=== PATIENT | male | born 1940 | race Caucasian/White ===

== ENCOUNTER 2017-03-27 23:39 | Emergency (ER) | payer MEDICARE ==
[2017-03-28] MEDS ORDERED: Cyclobenzaprine 10 MG TAB ONE (00:39)
[2017-03-28] MEDS ORDERED: predniSONE 20 MG TAB ONE (00:39)
--- NOTE | 2017-03-28 07:34 | RAD ---
3 VIEW LUMBAR SPINE RADIOGRAPH SERIES: Date: 03/28/17 CLINICAL HISTORY: Pain, emergency exam. FINDINGS: Moderate multilevel degenerative change of the lumbar spine present. There is a trace degree of retr olisthesis at L1-2. Multilevel prominent disc space narrowing present with multilevel gas vacuum phe nomenon. There is prominent facet osteoarthritis throughout the lumbar spine. Incidental note of ath erosclerosis. IMPRESSION: Multilevel prominent degenerative change of the lumbar spine without acute fracture evident. POS: C
--- NOTE | 2017-03-28 07:35 | RAD ---
RIGHT HIP 2 VIEWS: Date: 03/28/17 INDICATION: Pain. Emergency exam. FINDINGS: There is no fracture or dislocation of the right hip. Scattered degenerative change present. There a re metallic clips in the right inguinal region. IMPRESSION: No acute fracture of the right hip. POS: C
--- NOTE | 2017-05-12 14:34 | EKG ---
Test Reason : R. HIP PAIN LIGHTHEA Blood Pressure : / mmHG Vent. Rate : 071 BPM Atrial Rate : 071 BPM P-R Int : 000 ms QRS Dur : 162 ms QT Int : 488 ms P-R-T Axes : 000 065 053 degrees QTc Int : 530 ms AV sequential or dual chamber electronic pacemaker No STEMI Confirmed by AIXA PRICE, INGE ([id number]), film and video editor HORACIO THORNTON ([id number]) on 05/12/2017 2:33:59 PM Referred By: Confirmed By:INGE KRUSE MD
== END 2017-03-28 03:15 | disposition home or self-care (01) ==
LOC: ERS 23:39
DX: M51.36 Other intervertebral disc degeneration, lumbar region (principal); I25.10 Atherosclerotic heart disease of native coronary artery without angina pectoris; I48.91 Unspecified atrial fibrillation; E78.5 Hyperlipidemia, unspecified; I10 Essential (primary) hypertension; F41.9 Anxiety disorder, unspecified; Z79.899 Other long term (current) drug therapy; Z79.82 Long term (current) use of aspirin
CPT/HCPCS: 72100; 93005; 96374; 96376; J2270; J7506

== ENCOUNTER 2018-02-03 06:47 | Outpatient (CLI) | payer MEDICARE | END 2018-02-03 06:48 | disposition home or self-care (01) | LOC: BICCT 06:47 | PROVIDERS: ATTEND Orthopaedic Surgery | DX: M24.021 Loose body in right elbow (principal); M19.021 Primary osteoarthritis, right elbow; M25.721 Osteophyte, right elbow; M25.821 Other specified joint disorders, right elbow ==

== ENCOUNTER 2018-03-02 09:42 | Outpatient (CLI) | payer MEDICARE ==
[2018-03-02 11:32] LABS: Hemoglobin 12.8 g/dL (14.0-18.0); Mean Corpuscular HGB CONC 33.2 g/dL (32.0-36.0); Mean Corpuscular Hemoglobin 30.3 pg (27.0-31.0); Mean Corpuscular Volume 91.3 fL (78.0-98.0); Mean Platelet Volume 7.3 fL (7.4-10.4); Platelet Count 305 thou/uL (130-400); RBC Distribution Width 12.6 % (11.5-14.5); Red Blood Cell (RBC) Count 4.22 mill/uL (4.70-6.10); White Blood Cell (WBC) Count 9.9 thou/uL (4.8-10.8)
[2018-03-02 11:49] LABS: Anion Gap 16 mmol/L (10-20); BUN (Urea Nitrogen) 19 mg/dL (8.4-25.7); Calc. Creatinine Clearance 0 mL/min (70-130); Calcium 9.5 mg/dL (7.8-10.44); Carbon Dioxide 26 mmol/L (23-31); Chloride 98 mmol/L (98-107); Estimated GFR-MDRD 86; Glucose 115 mg/dL (83-110); Potassium 4.9 mmol/L (3.5-5.1); Sodium 135 mmol/L (136-145)
== END 2018-03-02 09:43 | disposition home or self-care (01) ==
LOC: LABBT 09:42
PROVIDERS: ATTEND Orthopaedic Surgery
DX: Z01.812 Encounter for preprocedural laboratory examination (principal); M24.021 Loose body in right elbow
CPT/HCPCS: 80048; 85027

== ENCOUNTER → 2018-03-05 | Day surgery (SDC) | payer MEDICARE ==
[2018-03-02 10:07] VITALS: BMI 36.3
[~2018-03-05] MED LIST: Bupivacaine/Epinephrine 0.25% 30 ML VIAL ONE; CEFAZOLIN/Water 2 GM/20 ML SYRINGE ONE; Fentanyl 100 MCG/2 ML VIAL ONE; Glycopyrrolate 0.2 MG/ML 5 ML SYRINGE ONE; HYDROcodone/Acetaminophen 5/325 mg Tablet ONE; Lidocaine 1% PF 5 ML VIAL ONE; PHENYLEPHRINE-NS 100 MCG/ML 10 ML SYRINGE ONE; PROPOFOL 200 MG/20 ML VIAL ONE; Vecuronium 10 MG VIAL ONE
[2018-03-05 06:59] LABS: Anion Gap 11 mmol/L (10-20); BUN (Urea Nitrogen) 16 mg/dL (8.4-25.7); Calc. Creatinine Clearance 106 mL/min (70-130); Carbon Dioxide 28 mmol/L (23-31); Chloride 99 mmol/L (98-107); Estimated GFR-MDRD 85; Glucose 145 mg/dL (83-110); Potassium 4.3 mmol/L (3.5-5.1); Sodium 134 mmol/L (136-145)
--- NOTE | 2018-03-05 10:35 | OP ---
DATE OF PROCEDURE: 03/05/2018 PREOPERATIVE DIAGNOSES: Right elbow loose body with early degenerative changes. POSTOPERATIVE DIAGNOSES: Right elbow osteoarthritis with degenerative changes, loose body. PROCEDURE PERFORMED: Limited debridement, elbow arthroscopy with loose body removal. STAFF: Gal Manuel M.D. EYE SPECIALIST: None. ANESTHESIA: Gamino. The patient received a general intubation with 20 mL of Marcaine, 0.25% with ep inephrine intraarticularly. ESTIMATED BLOOD LOSS: 10 mL. TOURNIQUET TIME: 38 minutes at 250 mmHg. ANTIBIOTICS: Ancef 2 grams. COMPLICATIONS: None. HISTORY OF PRESENT ILLNESS: Mr. Joe is a 77-year-old male who presented to me with elbow pain. He had good relief from an elbow injection. The patient had locking and catching symptoms. CT scan showed anterior osteophyte and some loose bodies noted with intraarticularly. I discussed with patie nt the risks and benefits of an arthroscopic debridement with removal of loose body and indicated pro cedures. The patient understood the risks and benefits of the procedure to include pain, scar, bleed ing, infection, damage to vital structures, decreased range of motion or strength, failure of removal of loose bodies, continued pain despite surgical intervention, loss of life or limb. The patient un derstood the risks and benefits and elected to proceed. PROCEDURE NOTE: Timeout was performed designating the patient's right upper extremity as the operati ve site based on sight, consents, and markings. After timeout, the patient's right extremity was pre pped and draped in sterile fashion. He was placed in lateral decubitus position with bone prominence s well padded. I placed a tourniquet, it was brought up and left up for a total of 38 minutes. I we nt down, placed my proximal, anteromedial and my proximal anterolateral portal. I injected the Mary ine in the joint to distend it. I placed my scope portal, visualized intraarticularly. I was lookin g at the radiocapitellar joint, placed my lateral portal. I then debrided. here was some synovitic tissue and a small loose body noted right at the patient's tip of the coronoid which I debrided and r emoved. I debrided off some of the synovium and did a thorough check from medial then switched to la terally and did the same thing, debrided off any synovitis, anything that could be blocking it. I di d not feel or see any other loose bodies besides the one mass that I had to break into several pieces to remove anteriorly. I then moved posteriorly. I placed my midline incision and 1 direct posterio r incision and my posterior lateral incision for my scope portals. I placed my scope and debrided ou t the coronoid olecranon fossa. I completely opened fossa, did not find any large loose bodies that could have been removed, some of debridement. I checked from both portals to ensure that I did not m iss anything and there was no other ____. I put the elbow through range of motion. I then completed my scope, closed with my 3-0 nylon. The patient will begin elbow range of motion, be placed in a sling for about a week. He will be give n hydrocodone for a couple days and return to his previous hydrocodone dose. The patient will follow up with me in 10-14 days for the loose body removal.
== END ==
LOC: SDC 05:41
PROVIDERS: ATTEND Orthopaedic Surgery
PROC: 0RBL4ZZ Excision of Right Elbow Joint, Percutaneous Endoscopic Approach (ICD-10-PCS; principal; 2018-03-05)
PROC: 0RCL4ZZ Extirpation of Matter from Right Elbow Joint, Percutaneous Endoscopic Approach (ICD-10-PCS; 2018-03-05)
DX: M24.021 Loose body in right elbow (principal); M19.021 Primary osteoarthritis, right elbow; E78.5 Hyperlipidemia, unspecified; E11.9 Type 2 diabetes mellitus without complications; I25.10 Atherosclerotic heart disease of native coronary artery without angina pectoris; F32.9 Major depressive disorder, single episode, unspecified; F41.9 Anxiety disorder, unspecified; I48.0 Paroxysmal atrial fibrillation; I11.0 Hypertensive heart disease with heart failure; I50.22 Chronic systolic (congestive) heart failure; E66.9 Obesity, unspecified; Z68.36 Body mass index [BMI] 36.0-36.9, adult; Z79.82 Long term (current) use of aspirin; Z79.899 Other long term (current) drug therapy; Z88.8 Allergy status to other drugs, medicaments and biological substances; Z91.048 Other nonmedicinal substance allergy status; Z66 Do not resuscitate; Z95.1 Presence of aortocoronary bypass graft
CPT/HCPCS: 36415; 80048; 96374; J2001; J2704; J3010

== ENCOUNTER 2018-08-07 07:54 | Outpatient (CLI) | payer MEDICARE ==
--- NOTE | 2018-08-07 15:07 | NM ---
WHOLE BODY BONE SCAN: HISTORY: Fall with mid back pain. Compression fracture. COMPARISON: 08/21/2016 TECHNIQUE: A whole body bone scan is performed after administration of 31.8 millicuries of technetium 99m MDP. FINDINGS: An area of photopenia is seen overlying the left chest wall, likely from a pacemaker. Photopenia is seen in the right knee from prior right knee arthroplasty. No significant area of increased uptake o f the radiopharmaceutical is seen within the spine to suggest an acute compression fracture. Uptake surrounding the shoulders is likely secondary to degenerative changes. Soft tissue activity is unremarkable. IMPRESSION: No evidence of acute spinal compression fracture. POS: [facility]
== END 2018-08-07 07:55 | disposition home or self-care (01) ==
LOC: NM 07:54
PROVIDERS: ATTEND Anesthesiology Pain Medicine
DX: S22.009A Unspecified fracture of unspecified thoracic vertebra, initial encounter for closed fracture (principal)
CPT/HCPCS: 78306; A9503

== ENCOUNTER 2018-10-05 09:35 | Day surgery (SDC) | payer MEDICARE ==
[2018-10-05 10:56] LABS: #Eosinphils 0.4 thou/uL (0.0-0.7); #Lymphocytes 1.3 thou/uL (1.20-3.40); #Monocytes 0.6 thou/uL (0.11-0.59); #Neutrophils 5.3 thou/uL (1.40-6.50); %Basophils 0.2 % (0.0-1.0); %Lymphocytes 16.8 % (21.0-51.0); %Monocytes 8.4 % (0.0-10.0); %Neutrophils 69.5 % (42.0-75.0); Hemoglobin 11.1 g/dL (14.0-18.0); Mean Corpuscular HGB CONC 32.8 g/dL (32.0-36.0); Mean Corpuscular Hemoglobin 30.1 pg (27.0-31.0); Mean Corpuscular Volume 91.7 fL (78.0-98.0); Mean Platelet Volume 6.7 fL (7.4-10.4); Platelet Count 246 thou/uL (130-400); RBC Distribution Width 13.5 % (11.5-14.5); Red Blood Cell (RBC) Count 3.69 mill/uL (4.70-6.10); White Blood Cell (WBC) Count 7.6 thou/uL (4.8-10.8)
[2018-10-05 11:03] LABS: INR-International Normal Ratio 1.1; Prothrombin Time 13.8 SEC (12.0-14.7)
[2018-10-05 11:04] LABS: PTT 29.9 SEC (22.9-36.1)
[2018-10-05 11:44] LABS: Anion Gap 12 mmol/L (10-20); BUN (Urea Nitrogen) 15 mg/dL (8.4-25.7); Calc. Creatinine Clearance 109 mL/min (70-130); Calcium 9.5 mg/dL (7.8-10.44); Carbon Dioxide 29 mmol/L (23-31); Chloride 102 mmol/L (98-107); Estimated GFR-MDRD Greater than 90; Glucose 126 mg/dL (83-110); Sodium 139 mmol/L (136-145)
[2018-10-05] MEDS ORDERED: PROPOFOL 200 MG/20 ML VIAL ONE (13:13)
--- NOTE | 2018-10-05 19:52 | OP ---
DATE OF PROCEDURE: 10/05/2018 PROCEDURE PERFORMED: Electrical cardioversion. REASON FOR PROCEDURE: Mr. Joe is a 77-year-old male with history of prior ablations, atrial fibrillation, and surgical left atrial appendage closure. He is here for a planned cardioversion through his device. DESCRIPTION OF PROCEDURE: The patient received propofol by Anesthesia specialist. After adequate level of sedation achieved, a 35-joule internal synchronized shock promptly converted him back to sinus rhythm. CONCLUSION: Successful cardioversion. The interrogation reveals adequate function. Routine followup. Job ID: [id number]
--- NOTE | 2018-10-07 11:50 | EKG ---
Test Reason : PREOP Blood Pressure : / mmHG Vent. Rate : 070 BPM Atrial Rate : 070 BPM P-R Int : 000 ms QRS Dur : 170 ms QT Int : 486 ms P-R-T Axes : 000 046 046 degrees QTc Int : 524 ms Electronic ventricular pacemaker Biventricular paced. When compared with ECG of 27-MAR-2017 23:56, No significant change was found Confirmed by DR. John GRAYSON ([id number]) on 10/07/2018 11:50:37 AM Referred By: [facility] Confirmed By:DR. John GRAYSON
== END 2018-10-05 14:32 | disposition home or self-care (01) ==
LOC: CCL 09:35
PROVIDERS: ATTEND Internal Medicine Cardiovascular Disease
PROC: 5A2204Z Restoration of Cardiac Rhythm, Single (ICD-10-PCS; principal; 2018-10-05)
DX: I48.1 Persistent atrial fibrillation (principal); I11.0 Hypertensive heart disease with heart failure; I50.22 Chronic systolic (congestive) heart failure; I25.5 Ischemic cardiomyopathy; K21.9 Gastro-esophageal reflux disease without esophagitis; Z79.82 Long term (current) use of aspirin; Z79.899 Other long term (current) drug therapy; Z88.8 Allergy status to other drugs, medicaments and biological substances; Z91.048 Other nonmedicinal substance allergy status; Z95.1 Presence of aortocoronary bypass graft; Z95.810 Presence of automatic (implantable) cardiac defibrillator
CPT/HCPCS: 80048; 85025; 85610; 85730; 92960; 93005; 93010; J2704

== ENCOUNTER 2018-12-07 09:21 | Inpatient (IN) | payer MEDICARE ==
[2018-12-07 12:18] VITALS: BMI 34.8
[2018-12-07 12:40] LABS: Anion Gap 11 mmol/L (10-20); BUN (Urea Nitrogen) 11 mg/dL (8.4-25.7); Calc. Creatinine Clearance 122 mL/min (70-130); Calcium 10.1 mg/dL (7.8-10.44); Carbon Dioxide 29 mmol/L (23-31); Chloride 102 mmol/L (98-107); Estimated GFR-MDRD Greater than 90; Glucose 119 mg/dL (83-110); Magnesium 2.1 mg/dL (1.6-2.6); Potassium 4.2 mmol/L (3.5-5.1); Sodium 138 mmol/L (136-145)
[2018-12-07] MEDS: HYDROcodone/Acetaminophen 7.5/325 mg Tablet PO PRN ×2 (15:04→20:20)
[2018-12-07] MEDS ORDERED: Sotalol HCl 80 MG TAB PO SCH (21:00)
[2018-12-07] MEDS: Gabapentin 300 MG CAP PO SCH (21:32)
[2018-12-08] MEDS: HYDROcodone/Acetaminophen 7.5/325 mg Tablet PO PRN ×6 (00:14→20:24)
[2018-12-08] MEDS: Sotalol HCl 80 MG TAB PO SCH ×2 (05:19→18:34)
[2018-12-08] MEDS: Gabapentin 300 MG CAP PO SCH ×3 (05:23→20:25)
[2018-12-08] MEDS ORDERED: Sotalol HCl 80 MG TAB PO SCH (06:00)
--- NOTE | 2018-12-08 08:14 | HP ---
HISTORY OF PRESENT ILLNESS: I am admitting Mr. Joe at our [facility]. His problems are: 1. Chronic systolic congestive heart failure with ischemic cardiomyopathy. a. History of coronary artery disease with bypass grafting surgery in the past: b. 2D echo from 03/02/2018 showing LVEF of 20% to 25%, severe aortic valve dysfunction, moderate tricuspid regurgitation, mild mitral regurgitation, mild pulmonic insufficiency. 2. Persistent atrial fibrillation with prior repeat ablation including left atrial appendage isolation. 3. History of GI bleed and falls, contraindicating anticoagulation. 4. History of left atrial appendage occlusion surgically with bypass grafting per report. 5. Status post biventricular ICD implantation with Medtronic device in 02/2015. 6. History of sinus node dysfunction. 7. History of hypertension. ALLERGIES: TAPE AND COUMADIN. MEDICATIONS: At home, included; 1. Aspirin. 2. Lipitor 40 mg p.o. nightly. 3. Fluoxetine. 4. Isosorbide mononitrate. 5. Losartan 50 mg daily. 6. Spironolactone. 7. Lactobacillus. 8. Multivitamin. 9. Omeprazole. 10. Calcium. 11. D3/magnesium supplements daily. 12. Hydrocodone. 13. [place] daily. 14. Torsemide. 15. Carvedilol. 16. Gabapentin. SUBJECTIVE: Mr. Joe is doing fair. He has episodes of fluid overload on his device. He required increased dose of Lasix . He denies PND or orthopnea. No dizziness or loss of consciousness. No stroke-like symptoms. No fever, chills, cough. He is class 2-3 functional status. PAST HISTORY: As above. SOCIAL HISTORY: The patient denies smoking, EtOH, or drug abuse. He is . is in the room at the time of exam. FAMILY HISTORY: Noncontributory. OBJECTIVE DATA: VITAL SIGNS: Heart rate is 70, respiratory rate is 18, and temperature 99.2. GENERAL: Alert and oriented man, in no apparent distress. NECK: Supple. Jugular veins not distended. CHEST: Coarse with crackles. HEART: Sounds are regular to rate and rhythm. Left precordial ICD insertion site is well healed. ABDOMEN: Benign. Bowel sounds positive. EXTREMITIES: Lower extremities without edema, clubbing, or cyanosis. Pulses are adequate. NEUROLOGIC: The patient is nonfocal. MUSCULOSKELETAL: No joint pain or deformity. SKIN: Without rash. DATABASE: EKG reveals atrial fibrillation with ventricular pacing. The QT at baseline is 480 milliseconds, QTc calculated to be 530 milliseconds, QRS duration though is 170 milliseconds. LABORATORY DATA: Sodium 138, potassium 4.2, BUN is 11, and creatinine 0.71. ASSESSMENT AND PLAN: Mr. Joe is a pleasant 78-year-old man with prior history of ischemic cardiomyopathy, severe reduced LVEF, atrial fibrillation, noted more recently. He is here for sotalol loading. He is taking prescribed medications, starting tonight. We will plan to observe for next 4 loading dosages. Currently, he is stable. Currently, he is in atrial fibrillation. He has a history of left atrial appendage ligation by surgical procedure, currently not on anticoagulation hence. He had prior cardioversion with subsequent recurrence of atrial fibrillation and we are planning to load him with sotalol, possible cardioversion afterwards. Job ID: [id number]
--- NOTE | 2018-12-08 12:06 | PRG ---
DATE OF SERVICE: 12/08/2018 SUBJECTIVE: Mr. Joe seems to be doing well one day after admit. He initiated his sotalol therapy yesterday. So far continued atrial fibrillation, ventricular pacing. OBJECTIVE: VITAL SIGNS: Blood pressure is 133/71, heart rate 73, respiratory rate is 18, and temperature 98.8 degrees Fahrenheit. GENERAL: Alert and oriented obese man, in no apparent distress. NECK: Supple. Jugular veins not distended. CHEST: Coarse without crackles. HEART: Sounds are regular to rate and rhythm. No murmur or gallop. CARDIO: ICD insertion site is well healed. ABDOMEN: Benign. Bowel sounds are positive. EXTREMITIES: Lower extremities without edema, clubbing, or cyanosis. DIAGNOSTIC STUDIES: EKG is reviewed, revealing still prolonged QT with markedly prolonged QRS. No change from yesterday at about 128 milliseconds QTc. No proarrhythmia is seen. ASSESSMENT AND PLAN: Mr. Joe is a pleasant 78-year-old man with prior history of current state of congestive heart failure with poor left ventricular ejection fraction in the past. He had prior atrial fibrillation ablation, appendage isolation, but eventual surgical occlusion of the left atrium. He is now here for sotalol loading and possible cardioversion. For now, he seems to be doing well. The QT although prolonged possibly contributed by the markedly prolonged QRS as well. At this point, no major changes noted. Plan is to continue sotalol loading. Consider cardioversion tomorrow. Job ID: [id number]
[2018-12-09] MEDS: Gabapentin 300 MG CAP PO SCH ×3 (06:27→21:06)
[2018-12-09] MEDS: Sotalol HCl 80 MG TAB PO SCH ×2 (06:28→17:43)
[2018-12-09] MEDS ORDERED: PROPOFOL 40 ML ONE (13:34)
--- NOTE | 2018-12-09 17:30 | PRG ---
DATE OF SERVICE: 12/09/2018 This dictation is for Carmine Sanchez MD CHIEF COMPLAINT: Atrial fibrillation. SUBJECTIVE: The patient reports to be feeling well. He denies any chest discomfort, palpitations, presyncope or syncope. OBJECTIVE: GENERAL: The patient is well appearing, in no apparent distress. VITAL SIGNS: Blood pressure 134/64, pulse 72, respirations 16. NECK: Supple without jugular venous distention. RESPIRATORY: Breath sounds diminished throughout the lung disla but no adventitious sounds noted. Respiratory effort unlabored with good equal bilateral excursion. CARDIOVASCULAR: Regular rate and rhythm. ABDOMEN: Soft and nontender. Hepatojugular reflux negative. EXTREMITIES: No lower extremity edema noted. DIAGNOSTIC DATA: EKG today demonstrated underlying atrial fibrillation with biventricular pacing/capture and QT interval 496 milliseconds. IMPRESSION: 1. Recurrent, persistent atrial fibrillation in spite of repeat left atrial ablative procedures including isolation of left atrial appendage. He has been started on sotalol 120 mg p.o. b.i.d. and is tolerating medications well. Checking the QT interval manually, it has prolonged minimally from baseline. The patient's renal function remains stable. 2. HEALTH INFORMATION ASSISTANT-ICD in situ (Medtronic). 3. Dilated cardiomyopathy with severely decreased left ventricular ejection fraction of 20% to 25%. The left ventricular end diastolic dimension is 7.6 cm. 4. Moderate left atrial enlargement. 5. Moderate mitral regurgitation. 6. Atherosclerotic cardiovascular disease, status post previous coronary artery disease. 7. Chronic congestive heart failure, [place] Heart [employer] Class III, currently fairly well compensated. 8. Status post previous surgical excision of the left atrial appendage. PLAN: The patient is recommended for electrical cardioversion today. He remains n.p.o. The patient understands the goals and risks of electrical cardioversion including , CT, CVA, arrhythmia recurrence, and possible need for repeat or serial procedures. Job ID: [id number] [facility]
--- NOTE | 2018-12-09 19:06 | ECHO ---
DATE OF SERVICE: 12/09/18 REFERRING PHYSICIAN: Dr. Covington REASON FOR PROCEDURE: The patient is a 78-year-old male with prior history of chronic CHF and cardiomyopathy with reduced L VEF. Has been in atrial fibrillation and has had history of surgical Atriclip occlusion device. Is he re for ASHUTOSH to evaluate for patency or occlusion of the left atrial appendage and rule out intracardia c clots prior to planned cardioversion. PROCEDURE: The patient received Propofol by Anesthesia specialist. After adequate level of sedation achieved, a standard transesophageal echocardiogram probe was passed into the esophagus without diff iculty. Patient tolerated the procedure well, no complications noted. RESULTS: Left atrium is enlarged to a moderate to severe degree. The left atrial appendage is visualized with truncated small, less than 1 cm residual trunk noted with no distal part of the appendage is visualiz ed. No apparent communication between the left atrium and the mid to distal part of the left atrial a ppendage is seen. Four out of four pulmonary veins were seen. Interatrial septum is mobile and with r ight leaning suggestive of left atrial pressures. Left ventricular systolic function is severely redu corrina. Four chamber dilation noted. The aortic valve has three leaflets without regurgitation or sten osis. Right sided chambers with pacemaker wires noted in them. Pericardial space without effusion. The visualized portion of ascending aorta is without aneurysm or dissection. CONCLUSION: 1. No intracardiac clots. 2. Reduced LV systolic function. 3. Previously performed surgical left atrial appendage clipping reveals adequate closure of left atr ial appendage with a small, less than 1 cm stump still visualized. 4. Mild mitral regurgitation noted only. 5. No other valvular heart disease. 6. ICD/pacemaker wires in the right sided chambers. PLAN: Proceed with cardioversion.
--- NOTE | 2018-12-09 20:57 | OP ---
DATE OF PROCEDURE: 12/09/2018 PROCEDURE PERFORMED: Internal cardioversion. REASON FOR PROCEDURE: Mr. Joe is a 78-year-old man with a history of CHF and cardiomyopathy with reduced LVEF, who has history of left atrial appendage occlusion by likely AtriClip surgical device, underwent ASHUTOSH, demonstrating no clots, is here for a planned cardioversion. DESCRIPTION OF PROCEDURE: The patient's ICD was interrogated pre and post procedure, after adequate level of sedation achieved, pace termination of the perceived coarse atrial fib/flutter was attempted, but was unsuccessful. Following that, a synchronized 35-joule shock promptly converted back the patient to sinus rhythm. ICD was interrogated pre and post procedure, revealing adequate function and battery voltage 2.5 years of estimated longevity. The lead parameters are adequate with impedance of 589, 304, and 380 ohms respectively. P and R waves, 1 mV and 10.3 mV. Capture threshold 0.5 V, 1 V, and 0.5 V respectively. CONCLUSION: 1. Adequately functioning Bi-V ICD. 2. Successful internal cardioversion with 35-joule shock performed. 3. ATP therapies, and atrial overdrive pacing is programmed on. PLAN: Continue routine monitoring for recurrent arrhythmias. For now, hold off anticoagulation, hence left atrial appendage surgical clipping performed in the past. Job ID: [id number]
[2018-12-10] MEDS: Gabapentin 300 MG CAP PO SCH (05:44)
[2018-12-10] MEDS: Sotalol HCl 80 MG TAB PO SCH (05:44)
[2018-12-10 07:26] VITALS: BP 164/79; TEMP 100.2
--- NOTE | 2018-12-10 10:15 | DIS ---
DATE OF ADMISSION: 12/07/2018 DATE OF DISCHARGE: 12/10/2018 ADMITTING DIAGNOSES: 1. Chronic systolic congestive heart failure with nonischemic cardiomyopathy. 2. Persistent atrial fibrillation with prior ablation and left atrial appendage isolation. 3. Prior history of surgical left atrial appendage closure. 4. Biventricular implantable cardioverter-defibrillator in place. 5. History of sinus node dysfunction. DISCHARGE DIAGNOSES: 1. Status post sotalol loading without significant change in the QTc about 530 milliseconds. 2. Status post cardioversion. 3. Status post transesophageal echocardiogram on 12/09/2018, demonstrating adequate left atrial appendage occlusion with a surgical clip with minimal less than 1 cm stump. 4. The patient off anticoagulation. HOSPITAL COURSE: Mr. Joe was admitted for elective sotalol loading. He tolerated the medication well. No issues noted. His QTc remained pretty much unchanged from a 120 mg b.i.d. regimen. He is feeling better after his cardioversion performed yesterday. He is maintaining sinus rhythm on telemetry. His exam did not change. EKG reviewed this morning and revealed QTc about 530 milliseconds, unchanged from baseline. PLAN: At this point to resume all medications except carvedilol, will be reduced to 6.25 mg twice a day and sotalol continue 120 twice a day. The patient will be kept on aspirin only for anticoagulation. He is to resume losartan, Lipitor, and spironolactone as well. Torsemide also reinstituted. Routine ICD checks and followup visit in 6 weeks are requested. Job ID: [id number]
--- NOTE | 2018-12-10 17:52 | EKG ---
Test Reason : Blood Pressure : / mmHG Vent. Rate : 071 BPM Atrial Rate : 078 BPM P-R Int : 000 ms QRS Dur : 172 ms QT Int : 488 ms P-R-T Axes : 000 176 029 degrees QTc Int : 530 ms Ventricular-paced rhythm Biventricular pacemaker detected Abnormal ECG When compared with ECG of 05-OCT-2018 11:01, No significant change was found Confirmed by DR. John GRAYSON ([id number]) on 12/10/2018 5:52:02 PM Referred By: [facility] Confirmed By:DR. John GRAYSON
--- NOTE | 2018-12-10 17:54 | EKG ---
Test Reason : Blood Pressure : / mmHG Vent. Rate : 071 BPM Atrial Rate : 034 BPM P-R Int : 000 ms QRS Dur : 174 ms QT Int : 486 ms P-R-T Axes : 000 047 055 degrees QTc Int : 528 ms Electronic ventricular pacemaker When compared with ECG of 07-DEC-2018 14:15, (Unconfirmed) No significant change was found Confirmed by DR. John GRAYSON ([id number]) on 12/10/2018 5:54:03 PM Referred By: [facility] Confirmed By:DR. John GRAYSON
--- NOTE | 2018-12-11 08:08 | EKG ---
Test Reason : Blood Pressure : / mmHG Vent. Rate : 072 BPM Atrial Rate : 202 BPM P-R Int : 000 ms QRS Dur : 174 ms QT Int : 496 ms P-R-T Axes : 000 050 025 degrees QTc Int : 543 ms Electronic ventricular pacemaker When compared with ECG of 08-DEC-2018 07:24, (Unconfirmed) No significant change was found Confirmed by DR. John GRAYSON ([id number]) on 12/11/2018 8:08:26 AM Referred By: [facility] Confirmed By:DR. John GRAYSON
== END 2018-12-10 11:00 | disposition home or self-care (01) | DRG 309 ==
LOC: 2NO 10:39
PROVIDERS: ADMIT Internal Medicine Cardiovascular Disease; ATTEND Internal Medicine Cardiovascular Disease
PROC: 5A2204Z Restoration of Cardiac Rhythm, Single (ICD-10-PCS; principal; 2018-12-09)
PROC: B24BZZ4 Ultrasonography of Heart with Aorta, Transesophageal (ICD-10-PCS; 2018-12-09)
DX: I48.1 Persistent atrial fibrillation (principal); I50.22 Chronic systolic (congestive) heart failure; I25.5 Ischemic cardiomyopathy; I11.0 Hypertensive heart disease with heart failure; I25.10 Atherosclerotic heart disease of native coronary artery without angina pectoris; I08.8 Other rheumatic multiple valve diseases; Z95.810 Presence of automatic (implantable) cardiac defibrillator; Z95.1 Presence of aortocoronary bypass graft; Z88.8 Allergy status to other drugs, medicaments and biological substances; Z79.82 Long term (current) use of aspirin; Z79.899 Other long term (current) drug therapy
CPT/HCPCS: 36415; 80048; 83735; 92960; 93005; 93010; 93312; J2704

== ENCOUNTER 2019-06-01 08:28 | Outpatient (CLI) | payer MEDICARE ==
--- NOTE | 2019-06-01 08:48 | RAD ---
EXAM: Chest 2 views: HISTORY: Cough for one month COMPARISON: 04/02/2015 FINDINGS: There is an enlarged but stable cardiomediastinal silhouette. A pacemaker is seen with its leads in the right atrium, right ventricle, and coronary sinus. The patient is status post sternotomy. There is no evidence of consolidation, mass, or pleural effusion. Hardware is seen in the cervical spine. IMPRESSION: Cardiomegaly without evidence of acute cardiopulmonary disease
== END 2019-06-01 08:29 | disposition home or self-care (01) ==
LOC: BICRAD 08:28
PROVIDERS: ATTEND Family Medicine
DX: J18.9 Pneumonia, unspecified organism (principal); I51.7 Cardiomegaly
CPT/HCPCS: 71046

== ENCOUNTER 2019-07-20 10:22 | Outpatient (CLI) | payer MEDICARE ==
--- NOTE | 2019-07-20 12:02 | CT ---
CT LUMBAR SPINE WITHOUT CONTRAST: INDICATIONS: 78-year-old male with lumbar radiculopathy COMPARISON: Lumbar spinal radiographs dated January 14, 2005 TECHNIQUE: Multiple CT images were obtained of the lumbar spine without contrast. Axial, coronal, and sagittal r eformatted images were constructed from the raw data. FINDINGS: Visualized retroperitoneal and paravertebral soft tissues: There are moderate vascular calcifications seen involving the visualized vasculature. There is partial visualization of an exophytic right mid kidney cyst. No enlarged lymph nodes are evident. Spinal alignment: There is stable grade 1 anterolisthesis of L3 on L4. Spinal instrumentation or postsurgical change: There is postsurgical change of laminectomy is at L3-4 and L4-5 and laminotomies at L5-S1. At L5-S1, there is a broad-based disc osteophyte complex with loss of disc space height and facet ost eoarthritic change inducing severe right and moderate to severe left neural foraminal narrowing. There is a suspected superimposed right inferior projecting paracentral disc extrusion measuring appr oximately 12.5 mm in craniocaudad dimension on image 23 of series 6 likely causing at least moderate to severe right lateral recess narrowing with potential for impingement of the traversing ri ght S1 nerve root. This best seen on image 62 of series 2.. At L4-5, there is a broad-based disc osteophyte complex with loss of disc space height inducing sever e right and moderate to severe left neural foraminal narrowing. At L3-4, there is a broad-based disc osteophyte complex with loss of disc space height and facet hype rtrophy inducing moderate to severe bilateral neural foraminal narrowing At L2-3, there is a broad-based disc osteophyte complex with facet hypertrophy and loss of disc space height inducing severe bilateral neural foraminal narrowing At L1-L2, there is a mild broad-based disc osteophyte complex with facet hypertrophy inducing mild ce ntral canal narrowing with severe bilateral neural foraminal narrowing. At T12-L1, no appreciable osseous central canal or neural foraminal narrowing is demonstrated. IMPRESSION: 1. Severe multilevel lumbar spondylosis with multilevel neural foraminal narrowing as detailed above . 2. There is a suspected right inferior projecting paracentral disc extrusion at L5-S1 inducing at omayra st moderate to severe right lateral recess narrowing with potential for impingement of the traversing right S1 nerve root. A CT lumbar myelogram may be helpful for further characterization.
== END 2019-07-20 10:23 | disposition home or self-care (01) ==
LOC: BICCT 10:22
PROVIDERS: ATTEND Anesthesiology Pain Medicine
DX: M47.26 Other spondylosis with radiculopathy, lumbar region (principal); M48.061 Spinal stenosis, lumbar region without neurogenic claudication
CPT/HCPCS: 72131

== ENCOUNTER 2019-10-25 06:55 | Outpatient (CLI) | payer MEDICARE, OTHER ==
--- NOTE | 2019-10-25 13:52 | RAD ---
RADIOGRAPH CHEST 2 VIEW: DATE: 10/25/2019 TIME: 1:35 PM HISTORY: Preoperative clearance for 78-year-old male COMPARISON: 06/01/2019 FINDINGS: Prominent interstitial markings diffusely. These appear slightly worse in the right upper lobe compar ed to prior, but this is probably due to technical differences. Hypoinflated lungs. Sternotomy wires. Left atrial appendage closure device. Left-sided generator for ICD with leads at right atrial appendage, right ventricle, and coronary sinus. No consolidation. ACDF hardware at C-spine. Rotator cuff repair anchors at right humeral head. No pleural effusion or pneumothorax. No definite interval change. IMPRESSION: 1) no acute findings 2) multiple chronic findings as listed above.
[2019-10-25 16:35] LABS: #Eosinphils 0.4 thou/uL (0.0-0.7); #Lymphocytes 1.9 thou/uL (1.20-3.40); #Monocytes 0.8 thou/uL (0.11-0.59); #Neutrophils 7.6 thou/uL (1.40-6.50); %Basophils 0.3 % (0.0-1.0); %Eosinophils 3.4 % (0.0-10.0); %Lymphocytes 17.4 % (21.0-51.0); %Monocytes 7.7 % (0.0-10.0); %Neutrophils 71.2 % (42.0-75.0); Hemoglobin 11.6 g/dL (14.0-18.0); Mean Corpuscular HGB CONC 32.7 g/dL (32.0-36.0); Mean Corpuscular Hemoglobin 29.9 pg (27.0-31.0); Mean Corpuscular Volume 91.3 fL (78.0-98.0); Mean Platelet Volume 7.9 fL (7.4-10.4); Platelet Count 318 thou/uL (130-400); RBC Distribution Width 13.4 % (11.5-14.5); Red Blood Cell (RBC) Count 3.89 mill/uL (4.70-6.10); White Blood Cell (WBC) Count 10.7 thou/uL (4.8-10.8)
[2019-10-25 16:56] LABS: Anion Gap 17 mmol/L (10-20); BUN (Urea Nitrogen) 15 mg/dL (8.4-25.7); Calc. Creatinine Clearance 0 mL/min (70-130); Calcium 8.7 mg/dL (7.8-10.44); Carbon Dioxide 33 mmol/L (23-31); Chloride 96 mmol/L (98-107); Estimated GFR-MDRD Greater than 90; Glucose 150 mg/dL (83-110); Sodium 143 mmol/L (136-145)
== END 2019-10-25 06:56 | disposition home or self-care (01) ==
LOC: LABBT 06:55
PROVIDERS: ATTEND Orthopaedic Surgery
DX: Z01.818 Encounter for other preprocedural examination (principal); Z11.59 Encounter for screening for other viral diseases; M19.022 Primary osteoarthritis, left elbow
CPT/HCPCS: 71046; 80048; 85025; U0003; 87635

== ENCOUNTER 2019-10-28 08:35 | Day surgery (SDC) | payer MEDICARE ==
[2019-10-21 16:06] VITALS: BMI 35.2
[2019-10-28] MEDS ORDERED: Dexamethasone 4 mg/ml Vial ONE (10:13)
[2019-10-28] MEDS ORDERED: Fentanyl 100 MCG/2 ML VIAL ONE ×2 (10:13→12:39)
[2019-10-28 10:28] LABS: INR-International Normal Ratio 1.1; PTT 31.1 sec (22.9-36.1); Prothrombin Time 14.2 sec (12.0-14.7)
[2019-10-28] MEDS ORDERED: EPINEPHrine 1 MG/10 ML Abboject SYRINGE ONE (11:16)
[2019-10-28] MEDS ORDERED: Ropivacaine 0.5% HCl/PF (150 MG/30 ML VIAL) ONE (11:16)
[2019-10-28] MEDS ORDERED: Dexamethasone 20 MG/5 ML VIAL ONE (11:16)
[2019-10-28] MEDS ORDERED: Ketamine 50 MG/ML (10ML VIAL) ONE (11:46)
[2019-10-28] MEDS ORDERED: Lidocaine 1% w/Epinephrine 1:100K 20 ML VIAL ONE (12:39)
--- NOTE | 2019-10-29 09:46 | OP ---
DATE OF PROCEDURE: 10/28/2019 PREOPERATIVE DIAGNOSIS: Left elbow osteoarthritis with contracture. POSTOPERATIVE DIAGNOSIS: Left elbow osteoarthritis with contracture. PROCEDURES PERFORMED: 1. Extensive debridement, left elbow arthroscopy. 2. Capsular release. DISTILLERY LABORER: None. ANESTHESIA: Dr. Hernandez. The patient received an interscalene block with MAC. The patient had 20 mL of 1% lidocaine with epinephrine. TOURNIQUET TIME: 48 minutes at 250 mmHg. ANTIBIOTICS: Ancef 2 g. COMPLICATIONS: None. HISTORY OF PRESENT ILLNESS: Mr. Joe is a 78-year-old male, who presents with left elbow pain and previous history of arthritis, previous right scope successfully improved his pain control of his right elbow. The patient has multiple medical issues, he was cleared by his second worker for his surgery. [place] that with Dr. Hernandez, the best would be to use a block, do this with the patient awake given his significant cardiac history. I discussed risks and benefits of surgery with him and his including pain; scar; bleeding; infection; damage to vital structures, nerves, arteries, tendons; decreased range of motion and strength; need for further surgeries; loss of life or limb; and risk of blood clots. The patient understood the risks and benefits of procedure and elected to proceed. DESCRIPTION OF PROCEDURE: Time-out was performed designating the patient's left upper extremity as the operative site based on site, consents, and marking. After time-out, the patient's left upper extremity was prepped and draped in sterile fashion and all bony prominences and the ulnar nerve were marked out for placement of portals. I utilized a soft spot laterally to inject 20 mL of lidocaine with epinephrine into the elbow joint. To insufflate the capsule, I placed a proximal anteromedial portal using a knife, followed by hemostats, followed by blunt trocar into the capsule and visualized intra-articularly looking at the radial head, able to visualize the capitellum. There was kind of some damaged synovium, some small little loose bodies which were extracted as I debrided after placing my, what was supposed to be a proximal anterolateral portal, but maybe ended up being more closer to mid anterolateral but it was 2 cm, just 1 cm anteriorly. We shaved and debrided from the lateral side ensuring that all loose bodies that could be seen were removed. I then placed a Wissinger carole, switched and came from the lateral side and looked medially and cleaned off anything that I could see, taking pictures of the coronoid. No loose bodies. I cleaned some of the bone of the humerus to help with high flexion, although I was able to flex to -- 130 -- 180 degrees and no signs of impingement. After completion of this, I switched back to medial side from the lateral side using pair of arthroscopic biters. I bluntly dissected down to the capsule and started biting from lateral to medial proximally near its origin off the humerus to stay away from the radial nerve. We stayed out of the fibers of the brachialis. I moved lateral then and switched and did just a few fibers medially. Being happy with my capsular release, I debrided some of the capsule and ensured that I had good range of motion. I then moved posteriorly. I placed a direct posterior central portal into the olecranon fossa and placed a posterolateral portal to help visualize. I debrided out all the fossa. There was some bone that had filled in this space, which I debrided down to help with the olecranon. I saw one or two small little loose bodies, which were removed. I debrided off some of the bursa, staying away from the ulnar side, stayed away from the ulnar nerve. I ensured that I probed. I flexed and extended and came to almost about 10 degrees of extension, felt like we had improved patient's range of motion, removed all the loose bodies and synovium. I then washed and I closed all portals with 3-0 nylon. Tourniquet was let down at 48 minutes. The patient was awake the whole procedure with all his bony prominences well padded. We moved to the bed and placed him in a sling. He will begin elbow and wrist range of motion as tolerated. He has pain medication per his PCP. Job ID: [id number] [facility]
== END 2019-10-28 14:55 | disposition home or self-care (01) ==
LOC: SDC 08:35
PROVIDERS: ATTEND Orthopaedic Surgery
PROC: 0RBM4ZZ Excision of Left Elbow Joint, Percutaneous Endoscopic Approach (ICD-10-PCS; principal; 2019-10-28)
PROC: 0RCM4ZZ Extirpation of Matter from Left Elbow Joint, Percutaneous Endoscopic Approach (ICD-10-PCS; 2019-10-28)
DX: M19.022 Primary osteoarthritis, left elbow (principal); M24.522 Contracture, left elbow; M24.022 Loose body in left elbow; E78.5 Hyperlipidemia, unspecified; I11.0 Hypertensive heart disease with heart failure; I50.22 Chronic systolic (congestive) heart failure; E11.9 Type 2 diabetes mellitus without complications; I25.10 Atherosclerotic heart disease of native coronary artery without angina pectoris; I25.2 Old myocardial infarction; K21.9 Gastro-esophageal reflux disease without esophagitis; G89.29 Other chronic pain; M54.9 Dorsalgia, unspecified; F32.9 Major depressive disorder, single episode, unspecified; I48.0 Paroxysmal atrial fibrillation; F41.9 Anxiety disorder, unspecified; I42.9 Cardiomyopathy, unspecified; Z66 Do not resuscitate; Z79.82 Long term (current) use of aspirin; Z79.899 Other long term (current) drug therapy; Z88.8 Allergy status to other drugs, medicaments and biological substances; Z91.048 Other nonmedicinal substance allergy status; Z95.1 Presence of aortocoronary bypass graft; Z95.5 Presence of coronary angioplasty implant and graft; Z95.810 Presence of automatic (implantable) cardiac defibrillator
CPT/HCPCS: 85610; 85730; J0171; J1100; J2795; J3010

== ENCOUNTER 2020-12-20 11:07 | Emergency (ER) | payer OTHER, MEDICARE | END 2020-12-20 13:10 | disposition home or self-care (01) | LOC: ERS 11:07 | DX: S70.01XA Contusion of right hip, initial encounter (principal); S80.211A Abrasion, right knee, initial encounter; E78.5 Hyperlipidemia, unspecified; I10 Essential (primary) hypertension; Z79.899 Other long term (current) drug therapy; W01.0XXA Fall on same level from slipping, tripping and stumbling without subsequent striking against object, initial encounter ==

== ENCOUNTER 2021-09-19 13:25 | Outpatient (CLI) | payer MEDICARE | END 2021-09-19 13:26 | disposition home or self-care (01) | LOC: BICCT 13:25 | PROVIDERS: ATTEND Anesthesiology Pain Medicine | DX: M51.16 Intervertebral disc disorders with radiculopathy, lumbar region (principal); M51.27 Other intervertebral disc displacement, lumbosacral region; N28.1 Cyst of kidney, acquired | CPT/HCPCS: 72131 ==

== ENCOUNTER 2022-06-13 09:44 | Outpatient (CLI) | payer MEDICARE | END 2022-06-13 09:45 | disposition home or self-care (01) | PROVIDERS: ATTEND Family Medicine | DX: R26.81 Unsteadiness on feet (principal); R53.1 Weakness ==